=== PATIENT | female | born 1955 | race Caucasian/White ===

== ENCOUNTER 2016-10-29 08:12 | Day surgery (SDC) | payer OTHER ==
[~2016-10-29 08:12] MED LIST: ACETAMINOPHEN325 MG PO; IBUPROFEN600 MG PO
--- NOTE | 2016-10-29 09:14 | NUR ---
PREOP INSTRUCTIONS GIVEN TO PATIENT AND HER FAMILY. PATIENT SPEAKS YI WITH OCCASSIONAL ASSISTANCE FROM HER DAUGHTER. QUESTIONS ANSWERED. PATIENT AND DAUGHTER VERBALIZE UNDERSTANDING. CONSENT CONFIRMED. EXTREMITY MARKED BY DAUGHTER UNDERS THE DIRECTOIN OF THE PATIENT. WILL HOLD IV UNTIL SURGEON HAS HAD A CHANCE TO TALK TO THE PATIENT. PATIENT RESTING COMFORTABLY. FAMILY IN ROOM. KB
--- NOTE | 2016-10-29 11:02 | Progress Note ---
Subjective General Patient has abnormal EKG and history which she reported to me today of chest pressure. palpitations, and malestar about 10 days ago. No symptoms of pressure, SOB, pain, or palpitation at present. Surgery will be cancelled and we will refer to cardiology for further evaluation prior to surgery.
--- NOTE | 2016-10-29 11:07 | Provider's Discharge Care Plan ---
Problem, Goal, Plan Problem List 1. Rotator cuff tear
--- NOTE | 2016-10-29 11:07 | Provider's Discharge Care Plan ---
Problem, Goal, Plan Problem List 1. Rotator cuff tear
--- NOTE | 2016-10-29 12:07 | NUR ---
SURGERY WAS CANCELLED BY SURGEON. HE WILL SEND REFERAL. PATIENT INSTRUCTED TO FOLLOW UP WITH PRIMARY CARE. PATIENT AND DAUGHTER VERBALIZE UNDERSTANDING. KB
[2017-04-04] MEDS ORDERED: PRAVASTATIN SOD10 MG PO (10:21)
== END 2016-10-29 11:40 | disposition home or self-care (01) ==
LOC: OR SRH 08:12 → SCU SRH 08:21
DX: M75.121 Complete rotator cuff tear or rupture of right shoulder, not specified as traumatic (principal); Z53.09 Procedure and treatment not carried out because of other contraindication; R94.31 Abnormal electrocardiogram [ECG] [EKG]
CPT/HCPCS: 29240

== ENCOUNTER 2017-04-02 16:26 | Outpatient (CLI) | payer OTHER ==
--- NOTE | 2017-04-02 17:15 | DIAGNOSTIC IMAGING REPORT ---
PROCEDURE: XR CHEST 2 VIEW INDICATION: PRE OP TECHNIQUE: PA and lateral views. COMPARISON: Chest 10/02/2016 FINDINGS: Lungs are clear. Heart and mediastinum are normal. Thorax is normal. IMPRESSION: 1. Negative chest.
[2017-04-04] MEDS ORDERED: PRAVASTATIN SOD10 MG PO ×2 (10:21)
== END 2017-04-02 23:00 ==
LOC: RT SRH 16:26
DX: Z01.811 Encounter for preprocedural respiratory examination (principal); Z01.812 Encounter for preprocedural laboratory examination; Z01.810 Encounter for preprocedural cardiovascular examination; R94.31 Abnormal electrocardiogram [ECG] [EKG]
CPT/HCPCS: 90004; 90074; 90100; 90148; 90469; 90627; 95059

== ENCOUNTER 2017-04-07 06:15 | Day surgery (SDC) | payer OTHER ==
--- NOTE | 2017-04-02 17:18 | HISTORY AND PHYSICAL ---
ADMITTED: 04/07/2017 CHIEF COMPLAINT: 1. Shoulder pain HISTORY OF PRESENT ILLNESS: She has had chronic and progressively increasing pain in both shoulders over the last few years. She had been previously scheduled for a repair of her rotator cuff tear, but when she came to the hospital it was found that she had a near loss of consciousness episode and was having some palpitations and chest pains, and she was then postponed. She has had a cardiac evaluation from her body technician/painter and has been cleared to have the proposed rotator cuff surgery. She again, here in the clinic , had the procedure explained to her. I showed her exactly where the incisions would be, how we would go about doing the surgery, the screws that would be implanted in the shoulder, the risk of continued pain, of failure, of infection, of problems with healing, of stiffness, of anesthesia complications. All were explained to her, and she understands and accepts and would like to proceed with the planned surgery. MEDICAL/SURGICAL HISTORY: The past medical history is positive in that she has had some cardiac issues and has had either a loss of consciousness or very near loss of consciousness episode at one point, but again has had cardiac evaluation and was felt to not had an [place] and it be safe for surgery. She has had bilateral eye surgeries, which I believe to be cataract extractions, although she is not absolutely certain. She has had a previous hysterectomy as well, but her ovaries were left intact. 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 MEDICATIONS: 1. She currently takes pravastatin for hyperlipidemia. 2. She takes ibuprofen on a p.r.n. basis for pain, but is not on any other medications. ALLERGIES: 1. ASPIRIN. 2. OXYCODONE. SOCIAL HISTORY: She is a nonsmoker. FAMILY HISTORY: Negative for any serious problem with bleeding or anesthesia or other familial illness. REVIEW OF SYSTEMS: Negative for recent loss of consciousness or problem with her vision or balance, although she does occasionally get kind of dizzy and she describes problem with her carotid artery. She says that the flow in her right carotid artery runs backwards, and that affects then her balance and she feels lightheaded at times. This apparently was reported to her by her body technician/painter. I am not sure that is a completely accurate description of what the problem is, but that was her understanding as she explained to me. But she has not had loss of consciousness or seizure disorder recently. Cardiorespiratory: She has not had any shortness of breath, has not had any palpitations, and does not have a cough or congestion. Gastrointestinal: She has not had any nausea or vomiting, or diarrhea. Genitourinary: She has not had any dysuria or hematuria. Musculoskeletal: She does have the bilateral shoulder pain, worse in the right than the left. PHYSICAL EXAMINATION: GENERAL: Shows the patient to be alert and oriented. VITAL SIGNS: Height 67 inches, weight 171 pounds, blood pressure is 124/72. Pulse 68. HEENT: Head is normocephalic and atraumatic. Her eyes are clear. Her hearing is grossly normal. She has no drainage from the ear canals. Her face is symmetrical. NECK: Without jugular venous distention. CHEST: Symmetrical. HEART: Regular rate and rhythm without murmur. LUNGS: Clear to auscultation. ABDOMEN: Mildly obese. EXTREMITIES: Shoulders, I will refer you to my previous and previous clinic notes, but she does have pain with any shoulder motion. The pain is primarily at the shoulder and then radiates down the arm, she says even to the fingertips, although primarily in the upper portion of the upper arm. Her skin is intact, and there are no open wounds or erythema or undue warmth or drainage. LAB/IMAGING: Her MRI shows her to have a rotator cuff tear, probable labral tear as well. IMPRESSION: 1. On the basis of her physical examination, she probably has had rupture of the long head of biceps tendon. PLAN: The plan will be for surgical repair of the rotator cuff. We will plan to do that open. We will do an acromioplasty, likely a distal clavicle resection, and possibly biceps tenodesis. I also want to do an arthroscopy of the joint if need be and possibly debridement of the labrum. The procedure, where the incisions would be, how we would go about doing the operation, were all explained to her. Again I explained the risks of infection, stiffness, pain, problems with healing, continued problems with the shoulder, anesthesia complications including , were all described to her and she understands and accepts. She would like to proceed with this planned surgery. She is scheduled for operation on 04/07/2017. We will do the surgery then, barring unforeseen complication or problem.
[~2017-04-07] VITALS: Ht 170.2 cm; Wt 77.7 kg
[~2017-04-07 06:15] MED LIST changes: +PRAVASTATIN SOD10 MG PO
[2017-04-07 06:17] VITALS: BP 159/90
--- NOTE | 2017-04-07 08:32 | Progress Note ---
Subjective General Patient was seen on Friday by Dr Ferrer, her carry out clerk and told not to have GA. The patient hoped we might be able to do her surgery with local and so came anyway. Unfortunately, we did not get Dr Ferrer's report, but I was able to contact her this am. She confirmed that the patient is not really cleared for surgery as we understood and needs to have a stress test first. surgery was cancelled and we will plan to have her see the carry out clerk for further testing. Dc home for now.
--- NOTE | 2017-04-07 08:32 | Progress Note ---
Subjective General Patient was seen on Friday by Dr Ferrer, her industrial safety and health manager and told not to have GA. The patient hoped we might be able to do her surgery with local and so came anyway. Unfortunately, we did not get Dr Ferrer's report, but I was able to contact her this am. She confirmed that the patient is not really cleared for surgery as we understood and needs to have a stress test first. surgery was cancelled and we will plan to have her see the industrial safety and health manager for further testing. Dc home for now.
--- NOTE | 2017-04-07 08:35 | Provider's Discharge Care Plan ---
Problem, Goal, Plan Problem List 1. Rotator cuff tear
--- NOTE | 2017-04-07 08:35 | Provider's Discharge Care Plan ---
Problem, Goal, Plan Problem List 1. Rotator cuff tear
== END 2017-04-07 09:10 | disposition home or self-care (01) ==
LOC: OR SRH 06:15 → SCU SRH 06:16 → OR SRH 07:30
DX: M75.101 Unspecified rotator cuff tear or rupture of right shoulder, not specified as traumatic (principal); Z53.09 Procedure and treatment not carried out because of other contraindication; R00.2 Palpitations
CPT/HCPCS: 29240